=== PATIENT | male | born 1975 | race African-American/Black ===

== ENCOUNTER 2022-02-18 13:19 | Emergency (ER) | payer BC, SELFPAY ==
--- NOTE | ~2022-02-18 | XR_ITS ---
EXAMINATION: XR ankle LT min 3V, XR foot LT min 3V DATE: 02/18/2022 13:40 INDICATION: Left foot and ankle injury with medial sided pain and swelling TECHNIQUE: 1. Anteroposterior, mortise, additional oblique and lateral view of the left ankle were obtained. 2. Dorsoplantar, two oblique and lateral views of the left foot were obtained. COMPARISON: None. FINDINGS: Alignment of the foot and ankle is normal. No fracture. 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 Remain ing joint spaces appear relatively preserved. Small plantar calcaneal spur. No ankle joint effusion. The soft tissues are unremarkable. IMPRESSION: 1. No acute osseous abnormality at the left foot or ankle. 2. Small plantar calcaneal spur and moderate osteoarthritis at the first metatarsophalangeal joint. Reviewed, dictated and finalized at location A. IMPRESSION: 1. No acute osseous abnormality at the left foot or ankle. 2. Small plantar calcaneal spur and moderate osteoarthritis at the first metata rsophalangeal joint.
[2022-02-18 13:27] VITALS: BP 127/83; PULSE 62; RESP 16; TEMP 36.8; O2SAT 98
--- NOTE | 2022-02-18 13:47 | PC.NURSE ---
PT DECLINED ICE FOR COMFORT
--- NOTE | 2022-02-18 13:51 | ED.LOWEXIN ---
HPI - Extremity Injury (Lower) General Chief Complaint: Extremity Injury, Lower Stated Complaint: left ankle pain Time Seen by Provider: 02/18/22 13:54 Source: patient, RN notes reviewed and old records reviewed Mode of arrival: ambulatory History of Present Illness HPI Narrative: 47 year old male who presents to [facility] with complaints of pain to left ankle region and also to the bottom his left foot for 2 months. 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 Patient states that he has noted some ankle swelling to his inner ankle region at times has been taking Ibuprofen for his discomfort. He also states that it feels like a fibrous area on the mid esposito aspect of his left foot. MD complaint: other (left ankle and foot pain no injury) Onset (ago): month(s) (2) Treatments prior to arrival: cold therapy and NSAIDS Related Data Allergies Allergy/AdvReac Type Severity Reaction Status Date / Time No Known Allergies Allergy Verified 02/18/22 13:49 Review of Systems Review of Systems: CONSTITUTIONAL: Denies fever, chills, or sweats. EYES: Denies visual changes, redness, or discharge. ENT: Denies rhinorrhea, congestion, sore throat, or otalgia. CARDIOVASCULAR: Denies chest pain, palpitations, or edema. RESPIRATORY: Denies cough or dyspnea. GASTROINTESTINAL: Denies abdominal pain, nausea, vomiting, or diarrhea. GENITOURINARY: Denies dysuria or hematuria. SKIN: Denies rash or itching. MUSCULOSKELETAL: Denies back pain,positive for pain to inner left ankle and bottom of left foot , or myalgia. NEUROLOGIC: Denies headache, numbness, or weakness. PSYCHIATRIC: Denies anxiety or depression. All systems reviewed & are unremarkable except as noted in HPI and below PMFSH Past Medical History Medical History (Updated 02/22/22 @ 13:28 by Jennifer Field NP) No pertinent past medical history Surgical History Surgical History (Updated 02/22/22 @ 13:27 by Jennifer Field NP) No history of previous surgery Social History Social History (Updated 02/22/22 @ 13:26 by Jennifer Field NP) Smoking status: Never smoker Comments At time of signature, agree with nursing past medical, surgical, social and family history. There is no relevant family history pertinent to the presenting complaint Exam Narrative: GENERAL: Well-appearing, well-nourished, and in no acute distress. HEAD: Normocephalic, atraumatic. EYES: PERRLA and EOMI. ENT: Nares clear, no rhinorrhea or epistaxis. Mucous membranes moist.TM's normal with good light reflex, throat pink with no swelling or exudates NECK: Supple.no lymphadenopathy CHEST: Clear to auscultation. No respiratory distress.SAO2 98% on room air HEART: Regular rate and rhythm. No murmur heard. Normal peripheral pulses. ABDOMEN: Soft, nontender, nondistended, normal active bowel sounds. EXTREMITIES: Normal range of motion. No edema. Patient reports pain to the inner left ankle with no present swelling present, strong pulses to left foot, Fibrous feeling firm tissue area noted to esposito aspect of mid left foot with patient reporting pain on palpation with at times some radiation to heel. no tingling or numbness to foot verbalized. SKIN: Warm, dry, no rash. NEURO: No focal deficits. Alert and oriented x3. Course Course Level of Care: Express Care Visit Vital Signs Vital signs: Vital Signs Temperature 36.8 C 02/18/22 13:27 Pulse Rate 62 02/18/22 13:27 Respiratory Rate 16 02/18/22 13:27 Blood Pressure 127/83 02/18/22 13:27 Pulse Oximetry 98 02/18/22 13:27 Oxygen Delivery Room Air 02/18/22 13:27 Temperature 36.8 C 02/18/22 13:27 Pulse Rate 62 02/18/22 13:27 Respiratory Rate 16 02/18/22 13:27 Blood Pressure 127/83 02/18/22 13:27 Pulse Oximetry 98 02/18/22 13:27 Oxygen Delivery Room Air 02/18/22 13:27 MDM - Extremity Injury (Lower) Differential Diagnosis Differential diagnosis: Likely ankle
== END 2022-02-18 14:45 | disposition home or self-care (01) ==
PROVIDERS: Emergency Provider Registered Nurse
DX: M77.32 Calcaneal spur, left foot (principal); M72.2 Plantar fascial fibromatosis; M25.572 Pain in left ankle and joints of left foot
CPT/HCPCS: 73610; 73630; 99213; G0463